=== PATIENT | female | born 2000 | race Caucasian/White ===

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

== ENCOUNTER → 2018-09-25 | Outpatient (REF) | payer OTHER | LOC: M LAB REF 10:13 | PROVIDERS: ATTEND Physician Assistant Medical | DX: J01.11 Acute recurrent frontal sinusitis (principal) ==

== ENCOUNTER 2023-11-16 11:35 | Day surgery (SDC) | payer BC ==
[~2023-11-16] VITALS: Ht 154.9 cm; Wt 47.1 kg
[2023-11-16] MEDS: ONDANSETRON 4MG 2ML VIAL IV ONE (12:57)
[2023-11-16] MEDS: MORPHINE 2 MG/ML 1ML VIAL IV ONE ×2 (13:01→13:41)
[2023-11-16] MEDS: diazePAM 10MG/2ML SYRINGE IV ONE ×2 (13:03→13:41)
[2023-11-16] MEDS: NS 1,000 ML IV ONE (13:41)
[2023-11-16 14:40] LABS: BASO % 0.2 % (0.0-1.0); HEMATOCRIT 33.7 % (36.0-47.0); HEMOGLOBIN 11.4 g/dl (12.0-15.5); LYMPH % 10.5 % (24.0-44.0); MEAN CORPUSCULAR HEMOGLOBIN 28.7 pg (27.0-33.0); MEAN CORPUSCULAR HGB CONC 33.8 g/dl (32.0-36.5); MEAN CORPUSCULAR VOLUME 84.9 fl (80.0-96.0); MONO # 0.2 10^3/uL (0.0-0.8); MONO % 2.1 % (2.0-8.0); NEUTROPHILS # 8.4 10^3/uL (1.5-8.5); NEUTROPHILS % 86.9 % (36.0-66.0); PLATELET COUNT, AUTOMATED 340 10^3/uL (150-450); RED BLOOD COUNT 3.97 10^6/uL (4.00-5.40); WHITE BLOOD COUNT 9.7 10^3/uL (4.0-10.0)
[2023-11-16 14:46] LABS: HCG, SERUM QUALITATIVE NEGATIVE (NEGATIVE)
[2023-11-16] MEDS ORDERED: propofoL 200 MG/20 ML VIAL As Ordered ONE (14:46)
[2023-11-16] MEDS ORDERED: LIDOCAINE 2% INJ 100 MG/5 ML SYRINGE As Ordered ONE (14:46)
[2023-11-16] MEDS ORDERED: KETAMINE HCL 200MG/20ML VIAL As Ordered ONE (14:47)
[2023-11-16 14:58] LABS: BLOOD UREA NITROGEN 11 MG/DL (9-23); CALCIUM LEVEL 8.8 MG/DL (8.5-10.1); CARBON DIOXIDE LEVEL 19 MMOL/L (20-31); CHLORIDE LEVEL 111 MMOL/L (98-107); CREATININE FOR GFR 0.74 MG/DL (0.55-1.30); GLOMERULAR FILTRATION RATE > 60.0 (>60); GLUCOSE, FASTING 93 MG/DL (60-100); POTASSIUM SERUM 3.6 MMOL/L (3.5-5.1); SODIUM LEVEL 141 MMOL/L (136-145)
[2023-11-16 15:53] VITALS: BP 132/87; TEMP 98; O2SAT 100
== END 2023-11-16 16:00 | disposition home or self-care (01) ==
LOC: M ED 11:35 → M SDC 14:22
PROVIDERS: ATTEND Orthopaedic Surgery
DX: S43.014A Anterior dislocation of right humerus, initial encounter (principal); W01.0XXA Fall on same level from slipping, tripping and stumbling without subsequent striking against object, initial encounter; Y92.007 Garden or yard of unspecified non-institutional (private) residence as the place of occurrence of the external cause; Y93.9 Activity, unspecified; Y99.9 Unspecified external cause status; Z88.0 Allergy status to penicillin
CPT/HCPCS: 23655; 76000; 80048; 84703; 85025; 99284; J2405; J3360

== ENCOUNTER → 2023-11-16 | Outpatient (CLI) | payer BC | LOC: M WUC 10:54 | PROVIDERS: ATTEND Physician Assistant | DX: S40.011A Contusion of right shoulder, initial encounter (principal); W01.10XA Fall on same level from slipping, tripping and stumbling with subsequent striking against unspecified object, initial encounter; S43.001A Unspecified subluxation of right shoulder joint, initial encounter; Y92.9 Unspecified place or not applicable; Y93.9 Activity, unspecified; Y99.9 Unspecified external cause status ==

== ENCOUNTER → 2023-11-24 | Outpatient (CLI) | payer BC | LOC: M PLAIMG 08:32 | PROVIDERS: ATTEND Orthopaedic Surgery | DX: M25.511 Pain in right shoulder (principal) ==

== ENCOUNTER → 2024-02-08 | Outpatient (CLI) | payer BC | LOC: M PLAIMG 07:02 | PROVIDERS: ATTEND Orthopaedic Surgery | DX: M25.311 Other instability, right shoulder (principal); S43.014D Anterior dislocation of right humerus, subsequent encounter; M75.51 Bursitis of right shoulder; S46.911A Strain of unspecified muscle, fascia and tendon at shoulder and upper arm level, right arm, initial encounter; X58.XXXA Exposure to other specified factors, initial encounter; Y92.9 Unspecified place or not applicable; Y93.9 Activity, unspecified; Y99.8 Other external cause status ==

== ENCOUNTER → 2024-04-26 | Outpatient (CLI) | payer BC ==
[2024-04-26 16:38] LABS: THYROID STIMULATING HORMONE 0.754 uIU/ML (0.55-4.78)
[2024-04-26 16:39] LABS: CHOLESTEROL RISK RATIO 2.82 (<5); FREE T4 1.11 NG/DL (0.89-1.76); HDL CHOLESTEROL 69.3 MG/DL (>40); LDL CHOLESTEROL 99.7 MG/DL (<100); NON-HDL-C 126.7 MG/DL
== END ==
LOC: M WUC 13:01
PROVIDERS: ATTEND Internal Medicine Cardiovascular Disease
DX: R06.02 Shortness of breath (principal); Z87.891 Personal history of nicotine dependence; R42 Dizziness and giddiness